=== PATIENT | female | born 1975 | race Caucasian/White ===

== ENCOUNTER → 2017-12-10 | Outpatient (CLI) | payer MEDICARE, OTHER ==
--- NOTE | 2017-12-10 13:21 | US ---
EXAMINATION TYPE: US abdomen complete DATE OF EXAM: 12/10/2017 COMPARISON: NONE CLINICAL HISTORY: R10.11 RUQ Pain. EXAM MEASUREMENTS: Liver Length: 17.7 cm Gallbladder Wall: 0.2 cm CBD: 0.3 cm Spleen: 8.6 cm Right Kidney: 11.5 x 4.3 x 5.0 cm Left Kidney: 10.3 x 5.5 x 5.4 cm Pancreas: Tail obscured by overlying bowel gas, visualized portions wnl Liver: Coarse, heterogeneous echotexture, measuring upper limits of normal Gallbladder: Appears contracted, no stones or sludge visualized. Diffuse prominence of the gallbladd er wall. Evidence for sonographic Calderon's sign: No CBD: wnl Spleen: wnl Right Kidney: No hydronephrosis or masses seen Left Kidney: No hydronephrosis or masses seen Upper IVC: wnl Abd Aorta: wnl IMPRESSION: Diffuse prominence of the gallbladder wall, likely due to partial contraction. No other s onographic evidence of acute cholecystitis. Given the patient's right upper quadrant pain HIDA scan w ith CCK could be performed to evaluate for biliary dyskinesia or chronic cholecystitis.
== END | disposition home or self-care (01) ==
LOC: RADUSWWP 10:45
PROVIDERS: ATTEND Family Medicine
DX: R10.11 Right upper quadrant pain (principal)
CPT/HCPCS: 76700

== ENCOUNTER → 2018-01-23 | Day surgery (SDC) | payer MEDICARE, OTHER ==
[~2018-01-23] MED LIST: ALPRAZolam 0.5 MG TAB PO STA; oxyCODONE-APAP 10-325MG 1 EACH TAB PO ONE
[2018-01-23 09:13] LABS: Mean Platelet Volume 7.2; Platelet Count 380 k/uL (150-450)
[2018-01-23 09:14] VITALS: RESP 20; TEMP 98.1
[2018-01-23] MEDS: MORPHINE SULFATE 4 MG/ML SYRINGE IVP STA ×2 (10:11→10:21)
--- NOTE | 2018-01-23 10:57 | CT ---
EXAMINATION TYPE: CT biopsy liver DATE OF EXAM: 01/23/2018 COMPARISON: NONE HISTORY: Abnormal ultrasound and elevated liver enzymes CT DLP: 09/26/2005mGycm The procedure was explained to the patient. The risks, complications, benefits, and alternatives wer e discussed and any questions were answered. Informed consent was obtained. Patient was placed supi ne on the CT table and prepped and draped in the usual sterile fashion. All elements of maximal barrier and sterile technique utilized. Utilizing CT guidance, an 18 gauge core biopsy needle access into the right lobe of the liver was ac hieved and a single 18 gauge core sample was obtained. The patient was stable throughout the procedu re and remained stable upon discharge. IMPRESSION: 1. Successful 18 gauge core biopsy of the liver.
[2018-01-23 14:23] VITALS: BP 115/80; PULSE 80
== END ==
LOC: RADPROMAIN 08:34
DX: K76.89 Other specified diseases of liver (principal)
CPT/HCPCS: 85049; 85610; 88313; 88307; 36415; 47000; 77012; J2270